=== PATIENT | female | born 1995 | race Caucasian/White ===

== ENCOUNTER 2018-11-17 01:30 | Emergency (ER) | payer MEDICAID ==
[~2018-11-17] VITALS: Ht 167.6 cm; Wt 74.8 kg
[2018-11-17 01:30] VITALS: BP 124/85
--- NOTE | 2018-11-17 01:30 | NUR ---
TO BED # 03 AMBULATORY
--- NOTE | 2018-11-17 01:35 | NUR ---
PT CAME INTO ER WITH C/O OF RIGHT EAR PAIN AND SORE THROAT X 3 DAYS. PT STATED THAT SHE HAS BEEN TAKING TYLENOL FOR PAIN. PAIN LEVEL IS 10/10 AT THIS TIME. PT IS A/O X 4. ER MD MADE AWARE OF STATUS, SAFETY MEASURES IN PLACE.
--- NOTE | 2018-11-17 01:39 | NUR ---
Dr. Alcantara examining patient.
[2018-11-17] MEDS ORDERED: AMOXICILLIN 500 MG CAP PO ONE (01:45)
[2018-11-17] MEDS ORDERED: IBUPROFEN 800 MG TAB PO ONE (01:45)
[2018-11-17 02:00] VITALS: BP 124/85
--- NOTE | 2018-11-17 02:00 | NUR ---
Patient discharged with v/s stable. Written and verbal after care instructions given and explained. Patient alert, oriented and verbalized understanding of instructions. Ambulatory with steady gait. All questions addressed prior to discharge. ID band removed. Patient advised to follow up with PMD. Rx of MOTRIN AND AMOXICILLIN WAS given. Patient educated on indication of medication including possible reaction and side effects. Opportunity to ask questions provided and answered. PT STATED HER PAIN LEVEL HAD DECREASED TO A LEVEL 5/10 PRIOR TO D/C
== END 2018-11-17 02:00 | disposition home or self-care (01) ==
LOC: MED 01:30
DX: H66.91 Otitis media, unspecified, right ear (principal); J02.9 Acute pharyngitis, unspecified; F17.210 Nicotine dependence, cigarettes, uncomplicated
CPT/HCPCS: 99283

== ENCOUNTER 2024-02-26 23:30 | Emergency (ER) | payer MEDICAID ==
[~2024-02-26] VITALS: Ht 167.6 cm; Wt 83.5 kg
[2024-02-26 23:43] VITALS: BP 132/72; PULSE 113; RESP 18; TEMP 98.5; O2SAT 98
[2024-02-27 00:23] LABS: FLU A ANTIGEN negative (NEGATIVE); FLU B ANTIGEN NEGATIVE (NEGATIVE)
[2024-02-27 01:51] VITALS: O2SAT 99
[2024-02-27] MEDS: AMOXIL/CLAVULANATE 875/125 MG 1 TAB PO STA (02:15)
[2024-02-27] MEDS: DEXAMETHASONE 10 MG/ML VIAL PO ONE (02:16)
[2024-02-27] MEDS: KETOROLAC 30 MG/ML VIAL IM ONE (02:18)
[2024-02-27] MEDS ORDERED: AMOX1TAB8 PO (02:19)
[2024-02-27] MEDS ORDERED: ACET500T99 PO (02:19)
[2024-02-27] MEDS ORDERED: NAPR-337 PO (02:19)
== END 2024-02-27 02:40 | disposition home or self-care (01) ==
LOC: MED 23:30
DX: J02.9 Acute pharyngitis, unspecified (principal); Z20.822 Contact with and (suspected) exposure to COVID-19; Z79.899 Other long term (current) drug therapy
CPT/HCPCS: 87081; 87426; 87804; 96372; 99283; J1100; J1885